=== PATIENT | male | born 2005 | race Hispanic/Latino ===

== ENCOUNTER 2024-05-12 14:24 | Emergency (ER) | payer MEDICAID, OTHER ==
[~2024-05-12] VITALS: Ht 172.7 cm; Wt 79.4 kg
[2024-05-12 15:36] LABS: HEMATOCRIT 42.3 % (42-54); MEAN CORPUSCULAR HEMOGLOBIN 30.2 pg (27.0-33.0); MEAN CORPUSCULAR HGB CONC 34.5 g/dL (32.0-36.0); MEAN CORPUSCULAR VOLUME 87.4 fL (80-100); RED BLOOD CELL COUNT(AUTO) 4.84 MIL/uL (4.50-6.20); RED CELL DISTRIBUTION WIDTH 12.9 % (11.0-15.5); WHITE BLOOD COUNT (AUTO) 9.2 K/uL (4.8-10.8)
[2024-05-12 15:44] LABS: CREATININE 0.7 mg/dL (0.5-1.3); POTASSIUM 4.4 mmol/L (3.5-5.1)
[2024-05-12] MEDS ORDERED: HYDR25CA PO (16:09)
[2024-05-12 16:29] VITALS: BP 123/74; PULSE 78; RESP 18; O2SAT 98
== END 2024-05-12 16:38 | disposition home or self-care (01) ==
LOC: EDH 14:24
DX: F41.9 Anxiety disorder, unspecified (principal); R07.9 Chest pain, unspecified; R06.02 Shortness of breath; F20.9 Schizophrenia, unspecified
CPT/HCPCS: 36415; 71045; 80048; 85027